=== PATIENT | female | born 1985 | race Caucasian/White ===

== ENCOUNTER → 2016-05-04 | Outpatient (CLI) | payer OTHER ==
[~2016-05-04] MED LIST: BACL10TA PO; BCPILLS PO; MAGN1CAP4 PO; NATA1INJ IV; VNTHFA/IN INH
--- NOTE | 2016-05-04 08:50 | DIAGNOSTIC IMAGING REPORT ---
MRI OF THE BRAIN WITHOUT CONTRAST CLINICAL HISTORY: Multiple sclerosis. COMPARISON STUDY: MRI of the brain January 08, 2016. TECHNIQUE: Utilizing a 1.5 Margaret magnet and dedicated coil, multiplanar, multiecho imaging of the brain was performed without IV contrast. Thin cut FLAIR imaging was performed. FINDINGS: There are no areas of restricted diffusion. No acute intracranial hemorrhage, midline shift or mass effect is present. Brain volume is normal. Ventricular system is normal. The basilar cisterns are patent. Flow-voids for the major intracranial vessels are present. Multiple periventricular and subcortical white matter T2 hyperintense foci are similar to MRI of January 08, 2016. No new areas of signal abnormality are identified. Active demyelination is difficult to assess for on this unenhanced exam. The appearance of the brain is unchanged. Calvarial signal is maintained. There is no fluid within the mastoid air cells. A prominent CSF signal intensity space anterior to the right cerebellar hemisphere is unchanged. This could reflects a normal finding or small arachnoid cyst. IMPRESSION: 1. No significant change in numerous small foci of signal abnormality within the periventricular and subcortical white matter since MRI of January 08, 2016. While nonspecific, the findings favor multiple sclerosis. No new areas of demyelination identified. 2. No acute intracranial findings. Electronically signed by: Milo Tai M.D. 05/04/2016 8:48 AM
== END | disposition home or self-care (01) ==
LOC: C.MRIBC 07:54
PROVIDERS: ATTEND Family Medicine
DX: G35 Multiple sclerosis (principal)

== ENCOUNTER → 2016-07-27 | Outpatient (CLI) | payer OTHER ==
--- NOTE | 2016-07-27 10:08 | DIAGNOSTIC IMAGING REPORT ---
MRI OF THE LUMBAR SPINE WITHOUT CONTRAST CLINICAL HISTORY: Multiple sclerosis. Low back pain. Decompression surgery in 2015. COMPARISON STUDY: No previous studies for comparison. TECHNIQUE: Utilizing a 1.5 Margaret magnet and dedicated coil, multiplanar, multiecho imaging of the lumbar spine was performed without IV contrast. FINDINGS: For purposes of numbering on this exam, the L5-S1 disc space is assigned to axial image 23 of 25. Alignment of lumbar spine is anatomic. Vertebral body heights are maintained. There is no suspicious marrow replacement. Discogenic changes at the L5-S1 level are noted. There is no intracanalicular mass or fluid collection. There are findings suggestive of a posterior decompression at the L5 level. There is possible cord signal abnormality or atrophy within the right aspect of the cord at the T11 level. This is incompletely imaged on this exam. L1-2: The central canal and neural foramen are patent. L2-3: The central canal and neural foramen are patent. L3-4: There is a small central disc protrusion with mild narrowing of the central canal. The neural foramen are patent. L4-5: There is mild disc space narrowing with disc bulge. There is a central annular tear with tiny central disc protrusion. There is minimal narrowing of the central canal. Neural foramen are patent. L5-S1: There is no residual central canal stenosis. There is marked disc space narrowing. The neural foramen are patent. IMPRESSION: 1. Status post L5 decompression. No residual central canal stenosis at this level. 2. Small central disc protrusion at L3-L4 that results in mild central canal narrowing. 3. Possible cord signal abnormality or cord atrophy within the right aspect of the cord at the T11 level which is only shown on the sagittal sequences. This could reflect artifact or sequela of multiple sclerosis. Electronically signed by: Milo Tai M.D. 07/27/2016 10:06 AM Dictated Date/Time: 07/27/2016 9:59 AM
== END | disposition home or self-care (01) ==
LOC: C.MRI 09:08
PROVIDERS: ATTEND Family Medicine
DX: G35 Multiple sclerosis (principal); M51.16 Intervertebral disc disorders with radiculopathy, lumbar region; Z98.890 Other specified postprocedural states

== ENCOUNTER → 2016-09-21 | Day surgery (SDC) | payer OTHER ==
[~2016-09-21] VITALS: Ht 165.1 cm; Wt 54.5 kg
[~2016-09-21] MED LIST changes: +FENTANYL CITRATE INJ 50 MCG/1 ML 2 ML VIAL ONE; +MIDAZOLAM HCL 5 MG/ML 1 ML VIAL ONE
[2016-09-21 15:03] VITALS: Ht 165.1 cm; Wt 54.5 kg
[2016-09-21 15:11] VITALS: TEMP 36.8
--- NOTE | 2016-09-21 16:09 | Endo History and Physical ---
History & Physical Date of Service: September 21, 2016. Chief Complaint: NAUSEA IBS DIARRHEA FOOD SENSITIVITY Referring Physician: [facility] History of Present Illness 31 yo CF who presents for colonoscopy secondary to diarrhea and nausea. Past Surgical History Hx Cardiac Surgery: No Hx Internal Defibrillator: No Hx Pacemaker: No Hx Abdominal Surgery: No Hx of Implantable Prosthesis: No Hx Post-Op Nausea and Vomiting: No Hx Cancer Surgery: No Hx Thoracic Surgery: No Hx Orthopedic: Yes (LUMBAR DECOMPRESSION, RT ANKLE BONE CYST REMOVAL) Hx Urinary Tract Surgery: No Family History Colon CA, Esophogeal CA Social History Smoking Status: Never Smoker Hx Substance Use: No Hx Alcohol Use: Yes (SOCIAL/OCCASIONAL) Allergies Coded Allergies: Iodinated Diagnostic Agents (Verified Allergy, Unknown, FLU-LIKE SYMPTOMS AND MS FLARE-UP, 09/21/16) Current Medications Reported Home Medications Medications Dose Route/Sig Max Daily Dose Days Date Category Ventolin Hfa (Albuterol) 200 Puffs/44785 Mcg Aers 2-4 Puffs INH Q6H PRN 09/20/16 Reported Magnesium (Magnesium Oxide) 500 Mg Cap 1 Cap PO BID 09/20/16 Reported Lioresal (Baclofen) 10 Mg Tab 10 Mg PO TID PRN 09/20/16 Reported Control Pills (Miscellaneous) Tab 1 Tab PO QAM 09/20/16 Reported Tysabri (Natalizumab) 300 Mg/15 Ml Inj 300 Mg IV Q6WK 09/20/16 Reported Vital Signs Weight (Kilograms): 54.55 Height (Feet): 5 Height (Inches): 5 Date Time Temp Pulse Resp B/P Pulse Ox O2 Delivery O2 Flow Rate FiO2 09/21/16 15:11 36.8 50 18 106/59 99 Room Air Physical Exam General Appearance: WD/WN, no apparent distress Respiratory/Chest: Auscultation: breath sounds normal Cardiovascular: Heart Auscultation: RRR Abdomen: Bowel Sounds: normal Inspection & Palpation: soft, non-distended, no tenderness, guarding & rebound Assessment and Plan Assessment: 31 yo CF who presents for colonoscopy secondary to diarrhea and nausea. Plan: Proceed with colonoscopy.
--- NOTE | 2016-09-21 16:31 | Discharge Instructions ---
Endoscopy Patient Instructions Date / Procedure(s) Performed September 21, 2016. Colonoscopy Allergy Information Coded Allergies: Iodinated Diagnostic Agents (Verified Allergy, Unknown, FLU-LIKE SYMPTOMS AND MS FLARE-UP, 09/21/16) Discharge Date / Findings September 21, 2016. Random colon biopsies Stool aspirate collected Internal hemorrhoids Medication Instructions OK to resume all medications today as prescribed Reported Home Medications Medications Dose Route/Sig Max Daily Dose Days Date Category Ventolin Hfa (Albuterol) 200 Puffs/61190 Mcg Aers 2-4 Puffs INH Q6H PRN 09/20/16 Reported Magnesium (Magnesium Oxide) 500 Mg Cap 1 Cap PO BID 09/20/16 Reported Lioresal (Baclofen) 10 Mg Tab 10 Mg PO TID PRN 09/20/16 Reported Control Pills (Miscellaneous) Tab 1 Tab PO QAM 09/20/16 Reported Tysabri (Natalizumab) 300 Mg/15 Ml Inj 300 Mg IV Q6WK 09/20/16 Reported Provider Instructions Activity Restrictions - No exercising or heavy lifting for 24 hours. - Do not drink alcohol the day of the procedure. - Do not drive a car or operate machinery until the day after the procedure. - Do not make any important decisions or sign important papers in 24 hours after the procedure. Following Day: - Return to full activity which may include returning to work/school. Diet Start your diet with liquids and light foods (jello, soup, juice, toast). Then eat your usual diet if not nauseated. Treatment For Common After Affects For mild abdominal pain, bloating, or excessive gas: - Rest - Eat lightly - Lie on right side Follow-Up Information Follow-up with [facility] as scheduled Anesthesia Information What You Should Know You have had a procedure that required some medicine to reduce anxiety and discomfort. This treatment is called moderate sedation. After receiving the treatment, you may be sleepy, but you will be able to breathe on your own. The effects of the treatment may last for several hours. Follow these instructions along with Activity/Diet recommendations noted above: * Do NOT do anything where dizziness or clumsiness would be dangerous. * Rest quietly at home today, then you can be up and about tomorrow. * Have a responsible person stay with you the rest of today. * You may have had an I.V. today. If so, you may take the dressing off later today. Recommendations Call your doctor if: * Trouble breathing * Continuous vomiting for more than 24 hours * Temperature above 101 degrees * Severe abdominal pain or bloating * Pain not relieved by pain medicine ordered * There is increased drainage or redness from any incision * A large amount of rectal bleeding greater than 2-3 tablespoons. (If you had a polyp/s removed or have hemorrhoids, a small amount of blood - from the rectum is to be expected.) * You have any unanswered questions or concerns. IN THE EVENT OF A SERIOUS EMERGENCY, GO TO THE NEAREST EMERGENCY ROOM Your discharge instructions were prepared by provider Yovany Singh. Patient Instructions Signature Page Dnaia Azar Patient (or Guardian) Signature/Date: I have read and understand the instructions given to me by my caregivers. Caregiver/RN/Doctor Signature/Date: The above-named patient and/or guardian has received patient instructions on this date. + Original Patient Signature Page (only) stays with chart. Please make copy for patient.
--- NOTE | 2016-09-21 16:38 | GI REPORT ---
Procedure Date: 09/21/2016 3:58 PM Procedure: Colonoscopy Indications: Chronic diarrhea Medicines: Midazolam 7 mg IV, Fentanyl 125 micrograms IV Complications: No immediate complications. Estimated Blood Loss: Estimated blood loss: none. Procedure: Pre-Anesthesia Assessment: - Prior to the procedure, a History and Physical was performed, and patient medications and allergies were reviewed. The patient's tolerance of previous anesthesia was also reviewed. The risks and benefits of the procedure and the sedation options and risks were discussed with the patient. All questions were answered, and informed consent was obtained. Prior Anticoagulants: The patient has taken no previous anticoagulant or antiplatelet agents. ASA Grade Assessment: II - A patient with mild systemic disease. After reviewing the risks and benefits, the patient was deemed in satisfactory condition to undergo the procedure. After I obtained informed consent, the scope was passed under direct vision. Throughout the procedure, the patient's blood pressure, pulse, and oxygen saturations were monitored continuously. The On-site loaner was introduced through the anus and advanced to the terminal ileum. The colonoscopy was performed without difficulty. The patient tolerated the procedure well. The quality of the bowel preparation was good. The terminal ileum, the appendiceal orifice and the rectum were photographed. Findings: Non-bleeding internal hemorrhoids were found during retroflexion. The hemorrhoids were small. Several random biopsies were obtained with cold forceps for histology in the entire colon. Fluid aspiration for cytology was performed in the entire colon. Impression: - Non-bleeding internal hemorrhoids. - Several random biopsies were obtained in the entire colon. - Fluid aspiration was performed. Recommendation: - Resume previous diet. - Continue present medications. - Repeat colonoscopy for surveillance based on pathology results. - Return to primary care physician as previously scheduled. Yovany Singh DO 09/21/2016 4:37:19 PM This report has been signed electronically. Note Initiated On: 09/21/2016 3:58 PM I attest to the content of the Intraoperative Record and orders documented therein, exceptions below
[2016-09-21 17:04] VITALS: BP 114/65; PULSE 49; O2SAT 100
== END | disposition home or self-care (01) ==
LOC: C.GI 14:46
PROVIDERS: ATTEND Internal Medicine
DX: K58.9 Irritable bowel syndrome, unspecified (principal); K64.8 Other hemorrhoids; Z80.0 Family history of malignant neoplasm of digestive organs

== ENCOUNTER → 2016-10-04 | Outpatient (CLI) | payer OTHER ==
[~2016-10-04] MED LIST changes: -FENTANYL CITRATE INJ 50 MCG/1 ML 2 ML VIAL ONE; -MIDAZOLAM HCL 5 MG/ML 1 ML VIAL ONE
--- NOTE | 2016-10-04 09:20 | DIAGNOSTIC IMAGING REPORT ---
GI W/AIR SMALL BOWEL ROUTINE CLINICAL HISTORY: R19.7 UbobmsktV92.0 OzdnbyW22.0 [id number]. Nausea. COMPARISON STUDY: None FLUOROSCOPY TIME: 2.3 minutes. FINDINGS: Patient initiated swallowing function well. Esophagus is normal course and caliber. Gastroesophageal junction is normal. Size configuration stomach are normal. Duodenal bulb fills well. Duodenal sweep is unremarkable. Mucosal pattern and transit time throughout small bowel are within normal limits. Spot films the terminal ileum are unremarkable. IMPRESSION: Normal study. Electronically signed by: Kennedy Bond M.D. 10/04/2016 9:18 AM Dictated Date/Time: 10/04/2016 9:17 AM
== END | disposition home or self-care (01) ==
LOC: C.RAD 08:16
PROVIDERS: ATTEND Registered Nurse
DX: R11.0 Nausea (principal); R14.0 Abdominal distension (gaseous); R19.7 Diarrhea, unspecified

== ENCOUNTER → 2016-10-28 | Outpatient (CLI) | payer OTHER ==
--- NOTE | 2016-10-28 14:18 | DIAGNOSTIC IMAGING REPORT ---
Brain MRI WITHOUT CONTRAST HISTORY: Multiple sclerosis. Follow-up. TECHNIQUE: Multiplanar multisequence MRI of the brain was performed without the use of contrast due to the patient's reported contrast allergy. COMPARISON STUDY: Brain MRI 05/04/2016. FINDINGS: There are no areas of restricted diffusion to suggest acute infarction. The midline structures are intact. The paranasal sinuses are clear. The mastoid air cells are clear. The ventricles and sulci are within normal limits for age. There is no mass, hematoma, midline shift. The major vascular flow-voids at the skull base are well maintained. No significant change in the scattered T2 hyperintense foci within the periventricular and subcortical white matter of the supratentorial brain. No new white matter lesions identified. Focal prominent CSF signal intensity within the right cerebellopontine angle cistern is not significantly changed. This measures 2 cm. This could represent a small arachnoid cyst. IMPRESSION: No change compared to the prior study. No acute intracranial abnormality. A few scattered punctate foci of T2 hyperintensity within the white matter of the supratentorial brain remains unchanged. This would correlate with the patient's history of multiple sclerosis. No new white matter lesions identified. Electronically signed by: Zander Lobo M.D. 10/28/2016 2:17 PM Dictated Date/Time: 10/28/2016 2:11 PM
== END | disposition home or self-care (01) ==
LOC: C.MRI 13:28
PROVIDERS: ATTEND Family Medicine
DX: G35 Multiple sclerosis (principal)